=== PATIENT | female | born 2000 | race Caucasian/White ===

== ENCOUNTER 2022-04-01 14:07 | Emergency (ER) | payer OTHER, SELFPAY ==
[2022-04-01 14:12] VITALS: BP 122/77; PULSE 108; RESP 20; TEMP 36.8; O2SAT 100
--- NOTE | 2022-04-01 14:45 | ED.URI ---
HPI - URI/Sore Throat General Chief Complaint: Upper Respiratory Infection Stated Complaint: sore throat Time Seen by Provider: 04/01/22 14:40 Source: patient, RN notes reviewed and old records reviewed Mode of arrival: ambulatory Limitations: no limitations History of Present Illness HPI Narrative: 22-year-old female who presents to [facility] with complaints of sore throat for one week duration. Patient denies any cough, fevers chills or sweats, denies any ear pain. Patient reports that she has been eating and drinking. Patient does report some clear nasal draiage and some nasal stuffiness, denies any body aches or headache discomfort,has been taking Ibuprofen for her discomfort.Patient has not had COVID vaccinations or flu shot. MD elicited complaint: sore throat Onset (ago): week(s) (1) Pain scale (0-10): 5 Able to tolerate fluids by mouth: Yes Treatments prior to arrival: ibuprofen Related Data Home Medications Medication Instructions Recorded Confirmed metformin 500 mg tablet 500 mg PO BID 08/18/19 04/01/22 dulaglutide 1.5 mg/0.5 mL 1.5 mg subcut DIRECTED 04/01/22 04/01/22 [facility] Allergies Allergy/AdvReac Type Severity Reaction Status Date / Time carbamazepine [From Tegretol] Allergy Rash Verified 08/18/19 01:38 Review of Systems Review of Systems: CONSTITUTIONAL: Denies fever, chills, or sweats. EYES: Denies visual changes, redness, or discharge. ENT: Positive for rhinorrhea, congestion,positive for sore throat, no otalgia. CARDIOVASCULAR: Denies chest pain, palpitations, or edema. RESPIRATORY: Denies cough or dyspnea. GASTROINTESTINAL: Denies abdominal pain, nausea, vomiting, or diarrhea. GENITOURINARY: Denies dysuria or hematuria. SKIN: Denies rash or itching. MUSCULOSKELETAL: Denies back pain, joint pain, or myalgia. NEUROLOGIC: Denies headache, numbness, or weakness. PSYCHIATRIC: Denies anxiety or depression. FOR[facility]LY [facility] Past Medical History Medical History (Updated 04/04/22 @ 09:33 by Racquel Long NP) DM II (diabetes mellitus, type II), controlled Seizures none since 2005 no longer on medication Surgical History Surgical History (Updated 04/04/22 @ 09:35 by Racquel Long NP) History of placement of ear tubes as child Hx of tonsillectomy Social History Social History (Updated 04/04/22 @ 09:35 by Racquel Long NP) Smoking status: Never smoker Alcohol intake: current Alcohol use details: rare social Substance use type: does not use Living arrangements: with family Additional occupation/education comments: Pt works at [employer]. Gender identity (if verbalized by the patient): Female Comments At time of signature, agree with nursing past medical, surgical, social and family history. There is no relevant family history pertinent to the presenting complaint Exam Narrative: GENERAL: Well-appearing, well-nourished, and in no acute distress. HEAD: Normocephalic, atraumatic. EYES: PERRLA and EOMI. ENT: Nares minimal redness with clear rhinorrhea no epistaxis. Mucous membranes moist.TM's normal with good light reflex, throat red with no lesions or exudates, no tonsils present NECK: Supple.no lymphadenopathy CHEST: Clear to auscultation. No respiratory distress.SAO2 100% on room air, no cough or any tachypnea HEART: Regular rate and rhythm. No murmur heard. Normal peripheral pulses. ABDOMEN: Soft, nontender, nondistended, normal active bowel sounds. EXTREMITIES: Normal range of motion. No edema. SKIN: Warm, dry, no rash. NEURO: No focal deficits. Alert and oriented x3. Course Course Level of Care: Express Care Visit Vital Signs Vital signs: Vital Signs Temperature 36.8 C 04/01/22 14:12 Pulse Rate 108 H 04/01/22 14:12 Respiratory Rate 20 04/01/22 14:12 Blood Pressure 122/77 04/01/22 14:12 Pulse Oximetry 100 04/01/22 14:12 Oxygen Delivery Room Air 04/01/22 14:12 Temperature 36.8 C 04/01/22 1
== END 2022-04-01 15:24 | disposition home or self-care (01) ==
PROVIDERS: Emergency Provider Registered Nurse
DX: J06.9 Acute upper respiratory infection, unspecified (principal); E11.9 Type 2 diabetes mellitus without complications
CPT/HCPCS: 87081; 87880; 99213; G0463

== ENCOUNTER 2023-01-12 11:33 | Emergency (ER) | payer OTHER, SELFPAY ==
--- NOTE | ~2023-01-12 | CT_ITS ---
Non-contrast CT scan of the Abdomen and Pelvis Clinical indication: Right flank pain Technique: 2.5 mm axial scans were obtained through the abdomen and pelvis without intravenous or or al contrast. Dose reduction technique was used on this scan by utilizing automated exposure control a nd iterative reconstruction technique. The dose-length product (DLP) was 1506.72 mGy-cm. Findings: Images through the lung bases reveal no abnormalities. There is no evidence of renal or ureteral calculi. The kidneys and the ureters are nondilated. The liver, spleen, pancreas, gallbladder, and adrenals appear normal. There is no aortic aneurysm. There is no evidence of bowel obstruction. Normal appendix. Images through the pelvis were performed. There is no evidence of ascites or lymphadenopathy. Urinary bladder unremarkable. No adnexal mass evident. No ascites. Impression: Unremarkable exam. Reviewed, dictated and finalized at [facility]. Impression: Unremarkable exam.
[2023-01-12 11:35] VITALS: BP 140/84; PULSE 105; RESP 18; TEMP 37.1; O2SAT 99
[2023-01-12 11:57] LABS: Basophils Absolute Auto 0.1 K/mm3 (0.0-0.1); Eosinophils Percent Auto 0.7 % (0-4.4); Hematocrit 41.3 % (37.0-47.0); Hemoglobin 14.5 g/dL (12.0-15.0); Immature Granulocyte Absolute 0.01 K/mm3 (0.00-0.031); Immature Granulocyte Percent A 0.2 % (0-0.5); Lymphocytes Absolute Auto 2.48 K/mm3 (0.9-3.2); Lymphocytes Percent Auto 60.5 % (18.3-44.2); Mean Corpuscular HGB Conc 35.1 g/dl (32-36); Mean Corpuscular Hemoglobin 27.6 pg (26-34); Mean Corpuscular Volume 78.7 fl (80-100); Mean Platelet Volume 10.4 fl (7.4-10.4); Monocytes Absolute Auto 0.4 K/mm3 (0.1-0.6); Monocytes Percent Auto 9.5 % (2.6-8.5); Neutrophils Absolute Auto 1.1 K/mm3 (1.3-6.7); Neutrophils Percent Auto 27.1 % (45.5-73.1); Platelet Count Result 145 k/mm3 (150-375); Red Blood Count 5.25 M/mm3 (4.2-5.4); Red Cell Distribution Width 11.9 % (11.5-14.5); White Blood Count 4.1 K/mm3 (4.5-10.0)
[2023-01-12 12:07] LABS: Alanine Aminotransferase 111 U/L (6-35); Albumin Level 4.6 g/dL (3.5-5.1); Alkaline Phosphatase 78 U/L (38-126); Anion Gap 10 mmol/L (8-16); Aspartate Amino Transferase 45 U/L (14-36); Bilirubin,Total 0.7 mg/dL (0.2-1.3); Blood Urea Nitrogen 13 mg/dL (7-17); Carbon Dioxide 24 mmol/L (22-30); Chloride 101 mmol/L (98-107); Estimated CRCL calculation 224 ml/min; Estimated Glomerular Filt Rate > 60; Glucose 304 mg/dL (65-110); Potassium 4.1 mmol/L (3.4-5.0); Sodium 135 mmol/L (137-145)
[2023-01-12 12:25] LABS: Appearance Urine Cloudy (Clear); Bacteria Urine 2+ /hpf; Bilirubin Urine Negative (Negative); Blood Urine Negative (Negative); Color Urine Yellow (Yellow); Glucose Urine UA 3+ mg/dL (Negative); Ketones Urine Trace mg/dL (Negative); Leukocyte Esterase Ur 1+ LEU/UL (Negative); Need Manual Microscopic Reviewed; Nitrate Urine Negative (Negative); Non Pathogenic Casts 0-2; Protein Urine Trace mg/dL (Negative); Squamous Epithelial Cell Urine Moderate /hpf (Few); Urobilinogen Urine 0.2 mg/dL (<2.0); WBC Urine >100 /hpf; pH Urine 5.5 (5.0-9.0)
[2023-01-12 12:26] LABS: Specific Grav Ur 1.058 (1.001-1.035)
[2023-01-12 12:28] LABS: Platelet Estimate Adequate (Adequate)
[2023-01-12 12:28] LABS: Add Urine Microscopic? YES
[2023-01-12 12:29] LABS: Atypical Lymphocytes Present; Schistocytes None Seen (NORMAL)
--- NOTE | 2023-01-12 12:43 | ED.GENADULT ---
HPI - General Adult General Chief complaint: Urogenital-Female Stated complaint: back pain Time Seen by Provider: 01/12/23 12:15 Source: patient Mode of arrival: ambulatory Limitations: no limitations History of Present Illness HPI narrative: Patient is 22 years old white female presented to the ED with right flank squeezing pain started 5 days ago after lifting a heavy furniture l. She denies any fever, chills, nausea, vomiting, urinary symptoms, vaginal bleeding or discharge. History of diabetes. Related Data Home Medications Medication Instructions Recorded Confirmed metformin 500 mg tablet 500 mg PO BID 08/18/19 04/01/22 dulaglutide 1.5 mg/0.5 mL 1.5 mg subcut DIRECTED 04/01/22 04/01/22 subcutaneous pen injector (Trulicity) Allergies Allergy/AdvReac Type Severity Reaction Status Date / Time carbamazepine [From Tegretol] Allergy Rash Verified 08/18/19 01:38 Review of Systems Review of Systems: All systems reviewed & are unremarkable except as noted in HPI and below PMFSH Past Medical History Medical History DM II (diabetes mellitus, type II), controlled Seizures none since 2005 no longer on medication Surgical History Surgical History History of placement of ear tubes as child Hx of tonsillectomy Social History Social History Smoking status: Never smoker Alcohol intake: current Alcohol use details: rare social Substance use type: does not use Living arrangements: with family Occupation/Education: occupation Additional occupation/education comments: Pt works at [employer]. Gender identity (if verbalized by the patient): Female Exam Narrative: General appearance: Well-developed, well-nourished Skin: Normal color Head: Normocephalic, nontraumatic Eyes: Clear conjunctiva ENT: Oropharynx normal, ears normal, nose normal Neck: Supple, nontender Chest and respiratory: Airway patent, no respiratory distress, no accessory muscle use Heart: Regular rate/rhythm Abdomen: Soft, nontender, no organomegaly, quiet bowel sounds Vascular: Normal peripheral pulses, normal capillary refill. Musculoskeletal: Mild to moderate tenderness right flank area, worse with tilting or bending over. No bruises, no rash. Neurologic: Alert and oriented ?3, [employer] is normal as tested, no gross motor deficit Course Vital Signs Vital signs: Vital Signs Temperature 37.1 C 01/12/23 11:35 Pulse Rate 105 H 01/12/23 11:35 Respiratory Rate 18 01/12/23 11:35 Blood Pressure 140/84 01/12/23 11:35 Pulse Oximetry 99 01/12/23 11:35 Oxygen Delivery Room Air 01/12/23 11:35 Temperature 37.1 C 01/12/23 11:35 Pulse Rate 105 H 01/12/23 11:35 Respiratory Rate 18 01/12/23 11:35 Blood Pressure 140/84 01/12/23 11:35 Pulse Oximetry 99 01/12/23 11:35 Oxygen Delivery Room Air 01/12/23 11:35 Medical Decision Making MDM Narrative Medical decision making narrative: Patient presents with squeezing pain at the right flank area after lifting heavy objects 5 days ago. Physical examination is consistent with localized tenderness at the right flank area. Work-up today showed infected urine high likely consistent with pyelonephritis, IV Rocephin ordered. CT abdomen pelvis without contrast showed unremarkable exam. Patient to be discharged home on Cipro 500 twice daily for 7 days with a diagnosis of urinary tract infection, right flank musculoskeletal pain is still a possibility. Patient will take naproxen 500 twice daily as needed. Patient cannot
[2023-01-12] MEDS: ACETAMINOPHEN 500 MG TABLET 1000 MG PO (13:09)
[2023-01-12 14:43] VITALS: BP 138/84; PULSE 105; RESP 18; O2SAT 99
== END 2023-01-12 14:44 | disposition home or self-care (01) ==
PROVIDERS: Emergency Medicine; Emergency Provider Emergency Medicine
DX: N39.0 Urinary tract infection, site not specified (principal); R10.9 Unspecified abdominal pain; E11.9 Type 2 diabetes mellitus without complications; Z79.84 Long term (current) use of oral hypoglycemic drugs
CPT/HCPCS: 36415; 74176; 80053; 81001; 81025; 85025; 87086; 87088; 96365; 99284; A9270; J0696